=== PATIENT | female | born 1945 | race African-American/Black ===

== ENCOUNTER 2018-01-07 23:13 | Inpatient (IN) | payer MEDICARE, MEDICAID ==
[~2018-01-07] VITALS: Ht 170.2 cm; Wt 86.2 kg
[~2018-01-07 23:13] MED LIST: CIPRO500 MG PO; COREG12.5 MG ORAL; FERROUS SULFAT325 MG ORAL; KEPPRA500 MG ORAL; LISINOPRIL20 MG ORAL
[2018-01-07] MEDS ORDERED: HYDROCHLOROTH12.5 M2 ORAL (23:18)
[2018-01-07 23:30] VITALS: BP 162/69
[2018-01-08] VITALS (11 sets, daily range): BP systolic 122–209; BP diastolic 59–90
[2018-01-08 00:33] LABS: BASOPHILS % (AUTO) 0.4 % (0.0-2.0); EOSINOPHILS % (AUTO) 1.2 % (0.0-3.0); LYMPHOCYTES % (AUTO) 11.2 % (20.0-45.0); MEAN CORPUSCULAR VOLUME 89 FL (80-99); MONOCYTES % (AUTO) 4.9 % (1.0-10.0); NEUTROPHILS % (AUTO) 82.2 % (45.0-75.0); PLATELET COUNT 198 K/UL (150-450); RED BLOOD COUNT 4.16 M/UL (4.20-5.40); RED CELL DISTRIBUTION WIDTH 12.8 % (11.6-14.8); WHITE BLOOD COUNT 7.9 K/UL (4.8-10.8)
[2018-01-08 00:56] LABS: ANION GAP 9 mmol/L (5-15); BLOOD UREA NITROGEN 14 mg/dL (7-18); CALCIUM 8.7 MG/DL (8.5-10.1); CARBON DIOXIDE 23 MMOL/L (21-32); CHLORIDE 108 MMOL/L (98-107); CREATININE 0.9 MG/DL (0.55-1.30); POTASSIUM 4.5 MMOL/L (3.5-5.1); SODIUM 140 MMOL/L (136-145)
[2018-01-08 01:07] LABS: ALANINE AMINOTRANSFERASE 27 U/L (12-78); ALBUMIN 3.3 G/DL (3.4-5.0); ALBUMIN/GLOBULIN RATIO 0.8 (1.0-2.7); ALKALINE PHOSPHATASE 53 U/L (46-116); ASPARTATE AMINO TRANSFERASE 37 U/L (15-37); BILIRUBIN,TOTAL 0.5 MG/DL (0.2-1.0); CREATINE KINASE 163 U/L (26-308)
[2018-01-08] MEDS ORDERED: OMEPRAZOLE40 M1 ORAL (01:26)
[2018-01-08] MEDS ORDERED: ATARAX25 MG ORAL (01:26)
[2018-01-08] MEDS ORDERED: CATAPRES0.1 MG ORAL (01:26)
[2018-01-08] MEDS ORDERED: cloNIDine 0.2mg Tab ORAL STA (02:32)
--- NOTE | 2018-01-08 02:36 | Emergency Room Report ---
History of Present Illness General Chief Complaint: Syncope Source: Patient, EMS Present Illness HPI The patient presents with syncope. She was sitting on the toilet when she passed out. She's been having loose stools. In addition to that she's been complaining about epigastric and diffuse abdominal crampiness. She rates pain at 0 for RN and will not rate for me. Diffuse in abdomen, not radiate. The patient was admitted several years ago for syncopal episode and required blood transfusions. She denies melena, coffee-ground emesis he hematemesis or hematochezia. She also denies chest pain, palpitations, fever chills. She denies taking antibiotics recently. Paramedics found her with stable vital signs but then she became hypotensive when they stood her up. They started giving her IV fluids at that time. H/O HTN. Allergies: Coded Allergies: No Known Allergies (Unverified , 08/31/14) Patient History Past Medical History: see triage record Social History: Denies: smoking, alcohol use, drug use Social History Narrative Born in [facility] Last Menstrual Period: NA Now: No Reviewed Nursing Documentation: PMH: Agreed; PSxH: Agreed Nursing Documentation-PMH Hx Cardiac Problems: Yes Hx Hypertension: Yes Review of Systems All Other Systems: negative except mentioned in HPI Physical Exam Vital Signs Date Time Temp Pulse Resp B/P (MAP) Pulse Ox O2 Delivery O2 Flow Rate FiO2 01/07/18 23:14 98.7 60 18 166/79 98 Room Air 98.8 Sp02 EP Interpretation: reviewed, normal General Appearance: well appearing, no apparent distress, GCS 15 Head: normocephalic Eyes: bilateral eye PERRL, bilateral eye conjunctivae pale ENT: moist mucus membranes Neck: supple Respiratory: lungs clear, normal breath sounds Cardiovascular #1: regular rate, rhythm Cardiovascular #2: 2+ radial (R) Gastrointestinal: normal inspection, normal bowel sounds, no mass, non- distended, no guarding, no rebound, tenderness - diffuse Rectal: heme negative stool - copious diarrhea Musculoskeletal: back normal, gait/station normal, normal range of motion Neurologic: alert, oriented x3, mine supervisor III-XII nml as tested, motor strength/tone normal, DTRs symmetric, sensory intact, cerebellar normal, speech normal Psychiatric: mood/affect normal Skin: normal inspection, warm/dry Medical Decision Making Diagnostic Impression: Primary Impression: Syncope Qualified Codes: R55 - Syncope and collapse Additional Impressions: Colitis Hypertension Qualified Codes: I10 - Essential (primary) hypertension ER Course Patient presents with syncope. Differential includes gastroenteritis, vasovagal , arrhythmia, acute myocardial infarction amongst others. The patient was evaluated EKG, chest x-ray and labs. Based on the neurologic exam and the history, a CT of the head is not indicated at this time Patient will receive IV hydration. The fact that she was orthostatic in the field suggest volume depletion. She is quite pale at this time and we will set up to possible transfuse if necessary. EKG shows no injury. Chest x-ray is unremarkable. Laboratory with normal white count. H&H is minimally low. CMP is unremarkable The patient had several bouts of copious amounts of watery diarrhea that was guaiac negative. This was sent for a stool culture and also C. difficile. The patient's blood pressure became quite high. This necessitated treatment with clonidine 0.1 mg twice. The patient is improved with observation however due to the syncopal episode we need to admit her for cardiac observation. The patient is admitted to Dr. Mcmillan to telemetry. Laboratory Tests Test 01/07/18 23:41 01/08/18 02:38 White Blood Count 7.9 K/UL (4.8-10.8) Red Blood Count 4.16 M/UL (4.20-5.40) L Hemoglobin 12.0 G/DL (12.0-16.0) Hematocrit 37.0 % (37.0-47.0) Mean Corpuscular Volume 89 FL (80-99) Mean Corpuscular Hemoglobin 28.8 PG (27.0-31.0) Mean Corpuscular Hemoglobin Concent 32.4 G/DL (32.0-36.0) Red Cell Distribution Width 12.8 % (11.6-14.8) Platelet Count 198 K/UL (150-450) Mean Platelet Volume 7.8 FL (6.5-10.1) Neutrophils (%) (Auto) 82.2 % (45.0-75.0) H Lymphocytes (%) (Auto) 11.2 % (20.0-45.0) L Monocytes (%) (Auto) 4.9 % (1.0-10.0) Eosinophils (%) (Auto) 1.2 % (0.0-3.0) Basophils (%) (Auto) 0.4 % (0.0-2.0) Prothrombin Time 10.2 SEC (9.30-11.50) Prothrombin Time INR 1.0 (0.9-1.1) PTT 22 SEC (23-33) L Sodium Level 140 MMOL/L (136-145) Potassium Level 4.5 MMOL/L (3.5-5.1) Chloride Level 108 MMOL/L (98-107) H Carbon Dioxide Level 23 MMOL/L (21-32) Anion Gap 9 mmol/L (5-15) Blood Urea Nitrogen 14 mg/dL (7-18) Creatinine 0.9 MG/DL (0.55-1.30) Estimate Glomerular Filtration Rate mL/min (>60) Glucose Level 152 MG/DL (74-106) H Calcium Level 8.7 MG/DL (8.5-10.1) Total Bilirubin 0.5 MG/DL (0.2-1.0) Aspartate Amino Transferase (AST) 37 U/L (15-37) Alanine Aminotransferase (ALT) 27 U/L (12-78) Alkaline Phosphatase 53 U/L (46-116) Total Creatine Kinase 163 U/L (26-308) Troponin I 0.000 ng/mL (0.000-0.056) Pro-B-Type Natriuretic Peptide 35 pg/mL (0-125) Total Protein 7.4 G/DL (6.4-8.2) Albumin 3.3 G/DL (3.4-5.0) L Globulin 4.1 g/dL Albumin/Globulin Ratio 0.8 (1.0-2.7) L Lipase 124 U/L (73-393) Urine Color Yellow Urine Appearance Clear Urine pH 7 (4.5-8.0) Urine Specific [place] 1.010 (1.005-1.035) Urine Protein Negative (NEGATIVE) Urine Glucose (UA) Negative (NEGATIVE) Urine Ketones Negative (NEGATIVE) Urine Occult Blood 1+ (NEGATIVE) H Urine Nitrite Negative (NEGATIVE) Urine Bilirubin Negative (NEGATIVE) Urine Urobilinogen Normal MG/DL (0.0-1.0) Urine Leukocyte Esterase Negative (NEGATIVE) Urine RBC 2-4 /HPF (0 - 2) H Urine WBC 0 /HPF (0 - 2) Urine Squamous Epithelial Cells Few /LPF (NONE/OCC) Urine Bacteria None /HPF (NONE) EKG Diagnostic Results Rate: normal Rhythm: NSR ST Segments: no acute changes Rhythm Strip Diag. Results EP Interpretation: yes Rhythm: NSR, no PVC's, no ectopy Chest X-Ray Diagnostic Results Chest X-Ray Diagnostic Results : Chest X-Ray Ordered: Yes Interpretation: no consolidation, no effusion, no pneumothorax, other - Cardiomegaly Impression: Other Electronically Signed by: Electronically signed by Denis Chamberlain MD Status: improved Disposition: ADMITTED INPATIENT Condition: Serious Referrals: NON PHYSICIAN (PCP) Denis Chamberlain M.D. January 08, 2018 02:36
[2018-01-08 03:13] LABS: APPEARANCE,URINE CLEAR; BILIRUBIN, URINE NEGATIVE (NEGATIVE); GLUCOSE, URINE (UA) NEGATIVE (NEGATIVE); KETONES,URINE NEGATIVE (NEGATIVE); LEUKOCYTE ESTERASE ,URINE NEGATIVE (NEGATIVE); NITRITE,URINE NEGATIVE (NEGATIVE); PH,URINE 7 (4.5-8.0); PROTEIN,URINE NEGATIVE (NEGATIVE); UROBILINOGEN,URINE NORMAL MG/DL (0.0-1.0)
[2018-01-08 03:22] LABS: COLOR,URINE YELLOW
[2018-01-08] MEDS ORDERED: MULTIVITAMINS1 EAC2 ORAL (06:12)
[2018-01-08] MEDS ORDERED: KLOR-CON 1010 MEQ ORAL (06:12)
[2018-01-08] MEDS ORDERED: Acetaminophen 500mg (ES) tab ORAL PRN (09:00)
[2018-01-08] MEDS: HydrALAZINE 25mg tab ORAL SCH (09:25)
[2018-01-08] MEDS: Heparin 5000 units/ml inj SUBQ SCH ×2 (09:26→21:02)
--- NOTE | 2018-01-08 11:18 | Diagnostic Imaging Report ---
Indication: Dyspnea Comparison: 08/31/2014 A single view chest radiograph was obtained. Findings: No definite infiltrate or pulmonary vascular congestion identified. The heart is enlarged. The aorta is mildly enlarged consistent with atherosclerotic vascular disease. The bones are osteopenic. Impression: No acute disease
--- NOTE | 2018-01-08 18:11 | Cardiology Report ---
APPROVED REPORT EKG Measurement Heart [id number] Normal sinus rhythm Left axis deviation Minimal voltage criteria for LVH, may be normal variant Nonspecific T wave abnormality Abnormal ECG
--- NOTE | 2018-01-08 23:30 | History and Physical Report ---
DATE OF ADMISSION: 01/07/2018 CHIEF COMPLAINT: Syncopal episode. HISTORY OF PRESENT ILLNESS: This is a 72-year-old female who was brought in by the paramedics. The patient was on the toilet seat when she passed out. She is confused and unable to give any further information. PAST MEDICAL HISTORY: 1. Hypertensive cardiovascular disease. 2. Organic brain syndrome. HOME MEDICATIONS: Clonidine, hydroxyzine, multivitamin, omeprazole, and potassium chloride. ALLERGIES: No known drug allergies. FAMILY HISTORY: Unable to obtain. SOCIAL HISTORY: Unable to obtain. REVIEW OF SYSTEMS: Unable to obtain. She is confused. PHYSICAL EXAMINATION: GENERAL: This is an elderly female who is in no acute distress. VITAL SIGNS: Blood pressure 148/80, pulse 64 and regular, respirations 20, and temperature 98.9 degrees. HEENT: The head is normocephalic and atraumatic. Pupils are equal, round, and reactive to light and accommodation consensually. NECK: Supple. Trachea midline. There was no lymphadenopathy or thyromegaly. LUNGS: Clear to auscultation and percussion. HEART: Regular rate and rhythm without rubs, murmurs, or gallops. ABDOMEN: Soft and nontender. Bowel sounds were active. EXTREMITIES: No clubbing, cyanosis, or edema. NEUROLOGICAL: She is alert, but confused. There were no gross focal findings. LABORATORY AND ANCILLARY DATA: CBC within normal limits. CMP, glucose 152, otherwise within normal limits. Chest x-ray, no acute disease. ASSESSMENT: Syncopal episode. No clear etiology. PLAN: 1. Obtain a 2D echo and carotid duplex. 2. Obtain orthostatic vital signs. Chuy Foley M.D. DR: DAHIANA JOB#: [id number] CC:
[2018-01-09] VITALS (7 sets, daily range): BP systolic 125–169; BP diastolic 66–77
--- NOTE | 2018-01-09 07:59 | General Progress Note ---
Assessment/Plan Assessment/Plan Syncope m/p post defecation (vaso depressive). W/u in progress. Check orthosthatics. DW pt's daughter yesterday 7 PM Subjective Allergies: Coded Allergies: No Known Allergies (Unverified , 08/31/14) Subjective No new c/o Objective Last 24 Hour Vital Signs Date Time Temp Pulse Resp B/P (MAP) Pulse Ox O2 Delivery O2 Flow Rate FiO2 01/09/18 04:00 61 01/09/18 04:00 98.0 72 18 133/66 97 Room Air 98.0 01/09/18 00:00 57 01/09/18 00:00 97.0 59 19 125/71 97 Room Air 97.0 01/08/18 20:00 98.1 61 18 122/60 96 Room Air 98.1 01/08/18 20:00 68 01/08/18 16:00 58 01/08/18 16:00 98.9 64 21 148/80 97 Room Air 98.9 01/08/18 12:00 55 01/08/18 12:00 98.0 54 19 128/63 97 Room Air 98.0 01/08/18 09:25 140/76 01/08/18 09:25 140/76 01/08/18 08:00 98.0 53 20 143/76 98 Room Air 98.0 Intake and Output 01/08/18 01/09/18 19:00 07:00 Intake Total 560 ml Balance 560 ml Intake Oral 560 ml # Voids 1 2 Height (Feet): 5 Height (Inches): 7.00 Weight (Pounds): 190 Objective CV RR Lungs CTA Abd SNT. BS + E No CCE Chuy Foley MD January 09, 2018 07:59
[2018-01-09] MEDS: HydrALAZINE 25mg tab ORAL SCH (08:46)
[2018-01-09] MEDS: Heparin 5000 units/ml inj SUBQ SCH ×2 (08:48→21:27)
[2018-01-10] VITALS: BP 185/91
[2018-01-10 04:00] VITALS: BP 182/90
[2018-01-10 08:00] VITALS: BP 184/97
[2018-01-10] MEDS: HydrALAZINE 25mg tab ORAL SCH (08:50)
[2018-01-10] MEDS: Heparin 5000 units/ml inj SUBQ SCH (10:41)
--- NOTE | 2018-01-10 10:52 | General Progress Note ---
Assessment/Plan Assessment/Plan Syncope m/p post defecation (vaso depressive). W/u in progress. Check orthosthatics. DW pt's daughter. All tests are WNL. DC home. Subjective Allergies: Coded Allergies: No Known Allergies (Unverified , 08/31/14) Subjective No new c/o Objective Last 24 Hour Vital Signs Date Time Temp Pulse Resp B/P (MAP) Pulse Ox O2 Delivery O2 Flow Rate FiO2 01/10/18 08:50 184/97 01/10/18 08:50 184/97 01/10/18 08:00 97.7 61 18 184/97 98 97.7 01/10/18 04:00 54 01/10/18 04:00 97.5 53 16 182/90 98 97.5 01/10/18 00:00 49 01/10/18 00:00 97.9 49 16 185/91 99 97.9 01/09/18 21:00 53 57 54 01/09/18 20:00 50 01/09/18 20:00 98.1 54 16 169/77 99 98.1 01/09/18 16:00 97.9 53 19 166/76 98 Room Air 97.9 01/09/18 16:00 47 01/09/18 12:00 97.0 54 19 153/77 94 Room Air 97.0 01/09/18 12:00 49 Intake and Output 01/09/18 01/10/18 19:00 07:00 Intake Total 250 ml Output Total 700 ml Balance -450 ml Intake Oral 250 ml Output Urine Total 700 ml # Voids 1 3 Height (Feet): 5 Height (Inches): 7.00 Weight (Pounds): 190 Objective CV RR Lungs CTA Abd SNT. BS + E No CCE Chuy Foley MD January 10, 2018 10:52
[2018-01-10 12:00] VITALS: BP 141/94
--- NOTE | 2018-01-10 16:50 | Cardiology Report ---
APPROVED REPORT EXAM: Two-dimensional and M-mode echocardiogram with Doppler and color Doppler. INDICATION Syncope M-Mode DIMENSIONS IVSd2.0 (0.7-1.1cm)Left Atrium (MM)3.3 (1.6-4.0cm) LVDd4.4 (3.5-5.6cm)Aortic Root3.4 (2.0-3.7cm) PWd1.5 (0.7-1.1cm)Aortic Cusp Exc.1.6 (1.5-2.0cm) LVDs2.7 (2.5-4.0cm) PWs1.3 cm Normal left ventricular chamber size, systolic function and wall motion. Left ventricular ejection fraction estimated to be 60-65 %. Moderate left ventricular hypertrophy. Anterior Echo-free space, may be due to pericardial fat or effusion. All other cardiac chamber sizes are within normal limits. Focal aortic valve sclerosis with adequate cusp excursion. Thickened mitral valve leaflets with normal excursion. Mild mitral annulus and aortic root calcification. Pulmonic valve not well visualized. Normal tricuspid valve structure. IVC dilated at 2.0 cm with physiological collapse. A color flow and spectral Doppler study was performed and revealed: No aortic insufficiency. Mild mitral regurgitation. Mitral diastolic velocities suggest mild left ventricular diastolic dysfunction (Grade I). Trace tricuspid regurgitation. Tricuspid systolic velocities suggests peak right ventricular systolic pressure of 23 mmHg. Trace pulmonic regurgitation present.
--- NOTE | 2018-01-13 09:02 | Discharge Summary ---
Discharge Summary Discharge Summary Discharge Summary DATE OF ADMISSION: 01/07/2018 DATE OF DISCHARGE: 01/10/2018 REASON FOR ADMISSION: 72 years old female with past medical history of hypertensive cardiovascular disease,organic brain syndrome , had syncopal episode while on in the bathroom trying to defecate. Upon evaluation in emergency room patient was confused and unable to provide any further information. Per paramedics, patient was initially was stable vital signs, but became hypotensive when she stood up. Patient received bolus of IV fluids at that time. Upon evaluation in emergency room vital signs were stable. Laboratory workup was unremarkable. However, blood pressure at some point became elevated and patient was giving clonidine. Troponin was negative. EKG revealed normal sinus rhythm, no acute ischemic changes. Neurological exam was nonfocal. CT of the head was not indicated at that time. Patient received IV hydration. Chest x-ray revealed no acute cardiopulmonary pathology. The patient had several bouts of copious amounts of watery diarrhea, which was guaiac negative. Stool was sent for C. difficile and stool culture. Patient was admitted to telemetry floor for further management with diagnosis of syncopal episode, hypertension, and diarrhea , possible colitis. HOSPITAL COURSE: Patient admitted to telemetry floor. Telemetry showed normal sinus rhythm and no acute ischemic changes. Echocardiogram revealed preserved ejection fraction of 60-65%, moderate left ventricular hypertrophy. Right ventricular systolic pressure of 23. Carotid duplex was essentially negative. Orthostatic vital signs did not show any changes. Blood pressure was elevated. Blood pressure was managed with clonidine and hydralazine . Blood pressure eventually stabilized. DVT and GI prophylaxis provided. Stool for C. difficile was negative. Stool culture revealed Pseudomonas. Diarrhea stopped. Afebrile, no leukocytosis . Syncopal episode occurred while patient was at the toilet seat trying to defecate, likely vasovagal. Diarrhea resolved. Blood pressure stable. Patient was stable for discharge home. FINAL DIAGNOSES: Syncopal episode (likely vasovagal) Hypertensive urgency, resolved Diarrhea, resolved DISCHARGE MEDICATIONS: See Medication Reconciliation list. DISCHARGE INSTRUCTIONS: Patient was discharged home, follow-up with a primary care provider next week I have been assigned to dictate discharge summary for this account. I was not involved in the patient's management. Odalys Dickey NP January 13, 2018 09:02
== END 2018-01-10 14:01 | disposition home or self-care (01) | DRG 312 ==
LOC: EDBD 23:13 → EMR 23:39 → 2E 23:53 → EDBEDREQ 01-08 02:12
DX: R55 Syncope and collapse (principal); I11.9 Hypertensive heart disease without heart failure; F09 Unspecified mental disorder due to known physiological condition; I16.0 Hypertensive urgency; R19.7 Diarrhea, unspecified
CPT/HCPCS: 36415; 71045; 80053; 81003; 82550; 83690; 83880; 84484; 85025; 85610; 85730; 86850; 86900; 86901; 87045; 87181; 87324; 93005; 93306; 93880; 99285

== ENCOUNTER 2018-01-11 22:30 | Emergency (ER) | payer MEDICARE, MEDICAID ==
[~2018-01-11] VITALS: Ht 170.2 cm; Wt 93.0 kg
[~2018-01-11 22:30] MED LIST changes: +ATARAX25 MG ORAL; +CATAPRES0.1 MG ORAL; +HYDROCHLOROTH12.5 M2 ORAL; +KLOR-CON 1010 MEQ ORAL; +MULTIVITAMINS1 EAC2 ORAL; +OMEPRAZOLE40 M1 ORAL
[2018-01-11 22:45] VITALS: BP 190/78
[2018-01-11] MEDS ORDERED: Aspirin Baby 81mg ORAL ONE (23:00)
--- NOTE | 2018-01-11 23:02 | Emergency Room Report ---
History of Present Illness General Chief Complaint: Chest Pain Source: Patient Present Illness HPI Is a 72-year-old female with a history of high blood pressure. She was just discharged from the hospital for syncope. She was discharged yesterday. Last night she developed chest pain to the left chest area. Sharp in nature. Worse when she coughs. He catches her breath. No fever chills. No nausea no vomiting. No diaphoresis. No short of breath. Pain radiates to the back. Never had this problem before. Did not have pain when she was in the hospital. Has not take anything for it. Came by car. Allergies: Coded Allergies: No Known Allergies (Unverified , 08/31/14) Patient History Past Medical History: see triage record, old chart reviewed, HTN Past Surgical History: other Pertinent Family History: none Social History: Denies: smoking Last Menstrual Period: NA Now: No Immunizations: other Reviewed Nursing Documentation: PMH: Agreed; PSxH: Agreed Nursing Documentation-PMH Hx Cardiac Problems: Yes Hx Hypertension: Yes Hx Cancer: No Hx Gastrointestinal Problems: No Hx Neurological Problems: No Review of Systems Eye: Denies: eye pain, blurred vision ENT: Denies: ear pain, nose congestion, throat swelling Respiratory: Denies: cough, shortness of breath Cardiovascular: Reports: chest pain; Denies: palpitations Gastrointestinal: Denies: abdominal pain, diarrhea, nausea, vomiting Musculoskeletal: Denies: back pain, joint pain Skin: Denies: rash Neurological: Denies: headache, numbness Endocrine: Denies: increased thirst, increased urine Hematologic/Lymphatic: Denies: easy bruising All Other Systems: negative except mentioned in HPI Physical Exam Vital Signs Date Time Temp Pulse Resp B/P (MAP) Pulse Ox O2 Delivery O2 Flow Rate FiO2 01/11/18 22:32 98.4 74 18 238/102 98 Room Air 98.4 vitals with high blood pressure Sp02 EP Interpretation: reviewed, normal General Appearance: well appearing, no apparent distress, alert Head: normocephalic, atraumatic Eyes: bilateral eye PERRL, bilateral eye EOMI ENT: hearing grossly normal, normal pharynx Neck: full range of motion, supple, no meningismus Respiratory: chest non-tender, lungs clear, normal breath sounds Cardiovascular #1: regular rate, rhythm, no murmur Gastrointestinal: normal bowel sounds, non tender, no mass, no organomegaly, no bruit, non-distended Musculoskeletal: back normal, gait/station normal, normal range of motion Psychiatric: mood/affect normal Skin: warm/dry Medical Decision Making Diagnostic Impression: Primary Impression: Chest pain Qualified Codes: R07.9 - Chest pain, unspecified Additional Impression: Hypertension Qualified Codes: I10 - Essential (primary) hypertension ER Course Patient presents with chest pain is been constant for almost [address] scan negative for PE. She felt better now. Blood pressure much improved. Pain is most likely muscle skeletal versus atelectasis. We'll discharge home. No evidence of ACS, PE, dissection to name a few. Lab Results Impression labs unremarkable EKG Diagnostic Results Rate: normal Rhythm: NSR ST Segments: other - NSST changes ASA given to the pt in ED: Yes Rhythm Strip Diag. Results Rhythm Strip Time: 23:02 EP Interpretation: yes Rate: 67 Rhythm: NSR, no PVC's, no ectopy Chest X-Ray Diagnostic Results Chest X-Ray Diagnostic Results : Chest X-Ray Ordered: Yes # of Views/Limited/Complete: 1 View Indication: Chest Pain EP Interpretation: Yes Interpretation: no consolidation, no effusion, no pneumothorax, no acute cardiopulmonary disease Impression: No acute disease Electronically Signed by: Chuck Aranda MD CT/MRI/US Diagnostic Results CT/MRI/US Diagnostic Results : Imaging Test Ordered: CT chest Impression negative per radiologist other than mild atelectasis Last Vital Signs Date Time Temp Pulse Resp B/P (MAP) Pulse Ox O2 Delivery O2 Flow Rate FiO2 01/11/18 22:32 98.4 74 18 238/102 98 Room Air 98.4 Status: improved Disposition: HOME, SELF-CARE Condition: Stable Referrals: NON PHYSICIAN (PCP) Patient Instructions: Nonspecific Chest Pain Additional Instructions: Follow-up with your DrJimbo in 2 to 3 days. Return of worse. CHUCK ARANDA M.D. January 11, 2018 23:02
[2018-01-11 23:22] LABS: BASOPHILS % (AUTO) 1.1 % (0.0-2.0); EOSINOPHILS % (AUTO) 2.1 % (0.0-3.0); HEMATOCRIT 40.7 % (37.0-47.0); HEMOGLOBIN 13.2 G/DL (12.0-16.0); LYMPHOCYTES % (AUTO) 17.6 % (20.0-45.0); MEAN CORPUSCULAR VOLUME 88 FL (80-99); MONOCYTES % (AUTO) 7.7 % (1.0-10.0); NEUTROPHILS % (AUTO) 71.6 % (45.0-75.0); PLATELET COUNT 237 K/UL (150-450); RED BLOOD COUNT 4.63 M/UL (4.20-5.40); RED CELL DISTRIBUTION WIDTH 12.7 % (11.6-14.8); WHITE BLOOD COUNT 6.8 K/UL (4.8-10.8)
[2018-01-11 23:26] LABS: APPEARANCE,URINE CLEAR; BILIRUBIN, URINE NEGATIVE (NEGATIVE); GLUCOSE, URINE (UA) NEGATIVE (NEGATIVE); KETONES,URINE NEGATIVE (NEGATIVE); LEUKOCYTE ESTERASE ,URINE 1+ (NEGATIVE); NITRITE,URINE NEGATIVE (NEGATIVE); PH,URINE 6 (4.5-8.0); PROTEIN,URINE 1+ (NEGATIVE); UROBILINOGEN,URINE 1 MG/DL (0.0-1.0)
[2018-01-11 23:32] VITALS: BP 148/59
[2018-01-11 23:45] LABS: ANION GAP 8 mmol/L (5-15); BLOOD UREA NITROGEN 16 mg/dL (7-18); CALCIUM 9.3 MG/DL (8.5-10.1); CARBON DIOXIDE 28 MMOL/L (21-32); CHLORIDE 104 MMOL/L (98-107); CREATININE 0.9 MG/DL (0.55-1.30); POTASSIUM 4.7 MMOL/L (3.5-5.1); SODIUM 140 MMOL/L (136-145)
[2018-01-11 23:49] LABS: COLOR,URINE YELLOW
[2018-01-11 23:58] LABS: ALANINE AMINOTRANSFERASE 32 U/L (12-78); ALBUMIN 3.7 G/DL (3.4-5.0); ALBUMIN/GLOBULIN RATIO 0.8 (1.0-2.7); ALKALINE PHOSPHATASE 68 U/L (46-116); ASPARTATE AMINO TRANSFERASE 32 U/L (15-37); BILIRUBIN,TOTAL 0.4 MG/DL (0.2-1.0); CKMB 0.6 NG/ML (0.0-3.6); CREATINE KINASE 112 U/L (26-308)
[2018-01-12 00:30] VITALS: BP 151/62
[2018-01-12] MEDS ORDERED: Isovue-370 150ml vial INJ PRN (00:30)
[2018-01-12 02:00] VITALS: BP 148/68
[2018-01-12 02:05] VITALS: BP 148/68
--- NOTE | 2018-01-12 09:35 | Diagnostic Imaging Report ---
Indication: Shortness of breath Technique: CT pulmonary angiogram performed utilizing automated exposure control with intravenous contrast. Axial, sagittal and coronal reconstructions were obtained. 3-D volumetric reconstructions were also performed. CT dose: Total DLP 1500.6 mGycm; CTDI vol 29.78 mGy Comparison: None Findings: Examination limited due to suboptimal contrast opacification of the pulmonary arteries related to contrast extravasation. Per technologist charting, the ordering ER physician was notified of the extravasation. There is no large saddle or central pulmonary embolism. Main pulmonary artery is normal in size. The examination is nondiagnostic to assess for interval in subsegmental pulmonary emboli. Thoracic aorta appears normal in caliber. There is cardiomegaly. No pericardial effusion. Thyroid is unremarkable. No pathologically enlarged mediastinal adenopathy. There is atelectatic changes in the bilateral lower lobes. There is no definite focal airspace consolidation to suggest pneumonia. No pleural effusion or pneumothorax. There are degenerative changes in the spine. No acute osseous abnormality is seen. Images through the abdomen grossly unremarkable. IMPRESSION: Limited exam due to patient motion as well as suboptimal contrast opacification from IV infiltration (per technologist notes treating ER physician notified of the contrast extravasation). No central pulmonary embolism. Main pulmonary artery normal in size. Exam is nondiagnostic to assess for smaller segmental and subsegmental pulmonary emboli. No thoracic aortic aneurysm. Cardiomegaly. Bilateral lower lobe atelectasis. No focal airspace consolidation, pleural effusion or pneumothorax. This corresponds with the preliminary report. The CT scanner at [facility] is accredited by the [employer] and the scans are performed using protocols designed to limit radiation exposure to as low as reasonably achievable to attain images of sufficient resolution adequate for diagnostic evaluation.
--- NOTE | 2018-01-12 09:35 | Diagnostic Imaging Report ---
Indication: Chest pain Technique: XRAY Chest 1v Comparison: 01/07/2018 Findings: Stable cardiomegaly. Mediastinal is are sharp. There is patchy bibasilar likely expiratory atelectasis. No definite focal airspace consolidation, pleural effusion or pneumothorax. There are degenerative changes in the spine. No acute osseous abnormality seen. Impression: Cardiomegaly. Patchy bibasilar likely expiratory atelectasis.
--- NOTE | 2018-01-12 18:51 | Cardiology Report ---
APPROVED REPORT EKG Measurement Heart [id number] Normal sinus rhythm Minimal voltage criteria for LVH, may be normal variant Borderline ECG
== END 2018-01-12 02:05 | disposition home or self-care (01) ==
LOC: EMR 22:44
DX: R07.9 Chest pain, unspecified (principal); I10 Essential (primary) hypertension
CPT/HCPCS: 36415; 71045; 71275; 80053; 81003; 82550; 82553; 84484; 85025; 85379; 93005; 96374; 99284; J0360; Q9967